=== PATIENT | female | born 1990 | race Caucasian/White ===

== ENCOUNTER 2019-09-17 12:28 | Emergency (ER) | payer OTHER, SELFPAY ==
[2019-09-17 12:33] VITALS: BP 120/71; PULSE 98; RESP 16; TEMP 36.8; O2SAT 98; BMI 29.1
--- NOTE | 2019-09-17 12:41 | ED_ITS ---
Entered by Elisabeth Ghosh, acting as scribe for Sherwin Villa HPI - Extremity Problem General: Chief complaint: Extremity Injury, Lower Stated complaint: Fell down stairs Time Seen by Provider: 09/17/19 12:41 Source: patient Mode of arrival: ambulatory Limitations: no limitations History of Present Illness: HPI Narrative: 29 yo Female presents to ED with complaint of right lower extremity pain. Pt states that she was carrying a lot of stuff and was walking down steps and her ankle twisted in. Pt states that the pain is in her heel and radiates around and up the back of the leg. MD Complaint: extremity pain Onset (ago): hour(s) (1100 today) Pain Consistency: constant Location: right and lower extremity (ankle) Severity scale (1-10): 6 Quality: constant Relieving factors: nothing and immobilization Exacerbating factors: range of motion, weight bearing and walking Associated symptoms: Reports no associated symptoms; Deny chest pain, fever(s) or rash Review of Systems General: Reports: 10 or more systems reviewed and unremarkable except in HPI and below Const: Denies: fever, chills or body aches Eyes: Denies: change in vision, blurry vision or blind spots ENMT: Denies: throat pain, painful swallowing or hoarseness Card: Denies: chest pain, palpitations, irregular heart rhythm, edema or swelling of feet/ankles Resp: Denies: shortness of breath, productive cough, non-productive cough or wheezing GI: Denies: abdominal pain, nausea or vomiting : Denies: flank pain, difficulty urinating, painful urination or urinary frequency Musc: Reports: extremity pain (Right ankle), extremity swelling (Right ankle) and limited range of motion; Denies: neck pain or back pain Skin/Breast: Denies: rash, itching or redness Neuro: Denies: headache, numbness in extremities, weakness in extremities or changes in sensation Endo: Denies: excessive urination, excessive thirst or tired all the time All/Imm: Denies: hives, throat swelling or tongue swelling PFSH ED PFSH: Statuses (acute, chronic, etc) shown below reflect problem list status as previously entered and may not be historically accurate Medical History (Updated 09/17/19 @ 13:56 by Sherwin Villa) History of dysfunctional uterine bleeding (Acute) MRSA infection (Acute) Peptic ulcer disease (Acute) UTI (urinary tract infection) (Acute) Surgical History (Updated 09/17/19 @ 12:46 by Elisabeth Ghosh) History of cholecystectomy (Acute) Social History Smoking and tobacco status: never smoked Physical Exam Const: COMMON NORMALS: no apparent distress, average body habitus, oriented x3, no limitations, healthy appearing, alert and well nourished HENMT: COMMON NORMALS: normocephalic, head/scalp atraumatic, hearing grossly normal bilaterally, external ears normal, EAC's normal, TM's normal bilaterally, external nose normal, nasal mucous membranes and turbinates normal, moist oral mucous membranes, oropharynx normal, dentition normal and gingiva normal HEAD & SCALP: normocephalic and atraumatic NOSE: external nose normal and nasal mucous membranes and turbinates normal EXTERNAL EAR: Yes external ears normal EXTERNAL AUDITORY CANAL: EAC's normal TYMPANIC MEMBRANE: TM's normal bilaterally Eye: COMMON NORMALS: PERRL, EOMs intact bilaterally, conjunctivae normal, no scleral icterus, no papilledema, normal visual tom by confrontation and fundi normal bilaterally CONJUNCTIVA: Yes conjunctivae normal PUPIL: Yes PERRL DIRECT OPHTHALMOSCOPY: Yes no papilledema and Yes fundi normal bilaterally Neck/C-Spine: COMMON NORMALS: full ROM, no lymphadenopathy, supple, no meningeal signs, no JVD, thyroid normal and no carotid bruits THYROID: thyroid normal Chest: COMMONS NORMALS: inspection of chest normal and palpation of chest normal Resp: COMMON NORMALS: normal respiratory effort, no retractions, no use of accessory muscles, clear to auscultation bilaterally and percussion normal AUSCULTATION: clear to auscultation bilaterally PERCUSSION: percussion normal Cardio: COMMON NORMALS: no JVD, regular rate, regular rhythm, S1 normal heart sound, S2 normal heart sound, no gallops, no clicks, no murmurs, no rub and peripheral pulses 2+ throughout RATE: regular rate RHYTHM: regular rhythm HEART SOUNDS: S1 normal and S2 normal PERIPHERAL PULSES: pulses 2+ throughout GI: COMMON NORMALS: normal to inspection, nondistended, normoactive bowel sounds, soft to palpation, non-tender, no hepatosplenomegaly, no masses and no bruits PALPATION: Yes soft and Yes no hepatosplenomegaly : COMMON NORMALS: Yes no CVA tenderness BLADDER/KIDNEY EXAM: Yes no CVA tenderness Back/Pelvis: COMMON NORMALS: no CVA tenderness Extremity: COMMON NORMALS: normal capillary refill, no joint enlargement, no clubbing, cyanosis or edema, no calf tenderness and no pedal edema; negative for normal to inspection and negative for full ROM GENERAL: Yes normal exam except as noted, Yes calf tenderness and Yes weight-bearing difficulty Neuro: COMMON NORMALS: oriented x3 SENSORIUM/ORIENTATION: Yes alert MENINGEAL SIGNS: Yes no meningeal signs Skin: COMMON NORMALS: no rashes or lesions noted, no wounds, skin turgor normal, no jaundice, no petechiae and no mottling GENERAL SKIN EXAM: no rashes or lesions noted and turgor normal Course Vital Signs: Vital signs: Vital Signs Temperature 98.3 F 09/17/19 12:33 Pulse Rate 82 09/17/19 14:28 Respiratory Rate 18 09/17/19 14:28 Blood Pressure 113/73 09/17/19 14:28 Pulse Oximetry 98 09/17/19 14:28 MDM - Extremity (Nontraumatic) Imaging Data^: XR Right Ankle: Radiologist's impression: [place] [address] XRay Report Signed Patient: Lee Hudson #: [id number] : 1990Acct#:[id number] Age/Sex: 29 / FADM Date: 09/17/19 Loc: [facility]/Bed: Attending Dr: Ordering Provider/Ordering MD: Sherwin Villa DO Date of Service: 09/17/19 Procedure(s): XR ankle RT min 3V* [id number] Accession Number(s): [id number] Report Number: [id number] WS: [id number] Right ankle, 3 views, 09/17/2019 Clinical Data: pain, swelling Comparison: None. Findings: No fractures or dislocations are seen. The ankle mortise is normal. The talus and calcaneus are unremarkable. No soft tissue swelling over the medial or lateral malleolus is seen. XR/XR ankle RT min 3V* [id number] Impression: Negative right ankle. Dictated By:Violetta Gr MD Signed By:Violetta Gr MDSigned Date/Time:09/17/198 DD/ 37 Discharge Plan Discharge Patient Disposition: Home, Self-Care Clinical Impression: Ankle sprain and strain Condition: Stable Prescriptions: [place] 5-325 mg tablet 1 tab PO Q6H PRN (Reason: pain) Qty: 10 RF: 0 Discharge Orders: Discharge Order (Routine); Ordered 09/17/19 Ordered By: Sherwin Villa Referrals: Nay Mari MD [Primary Care Provider] - Discharge Diet: Usual diet Discharge Activity: Limit activity as instructed Patient Instructions: Ankle Sprain (ED), Ankle Stirrup Splint (ED), RICE Therapy (ED) Activity Restrictions/Additional Instructions: Please take [id number] Motrin, ibuprofen, naproxen or Aleve, take with food Discharge Date/Time: 09/17/19 14:29 Coding Level of Care Code ED Long Wall Shear Operator for Chg Fwd Exam Problem Focused The documentation recorded by the Augie walker Carmen, accurately reflects the service I personally performed and the decisions made by Daisy talbert Daud Sep 17, 2019 12:28
--- NOTE | 2019-09-17 12:58 | XR_ITS ---
WS: [id number] Right ankle, 3 views, 09/17/2019 Clinical Data: pain, swelling Comparison: None. Findings: No fractures or dislocations are seen. The ankle mortise is normal. The talus and calcaneus are unrem arkable. No soft tissue swelling over the medial or lateral malleolus is seen. XR/XR ankle RT min 3V* [id number] Impression: Negative right ankle.
[2019-09-17] MEDS: HYDROcodone-acetaminophen 5-325 mg Tablet 1 TAB PO (14:15)
[2019-09-17 14:28] VITALS: BP 113/73; PULSE 82; RESP 18; O2SAT 98
== END 2019-09-17 14:29 | disposition home or self-care (01) ==
LOC: ER 14:08
PROVIDERS: Emergency Provider Emergency Medicine; Family Provider Family Medicine; PCP Family Medicine
DX: S93.401A Sprain of unspecified ligament of right ankle, initial encounter (principal); S96.911A Strain of unspecified muscle and tendon at ankle and foot level, right foot, initial encounter; X50.1XXA Overexertion from prolonged static or awkward postures, initial encounter
CPT/HCPCS: 73610; 99281; 99283; E0114

== ENCOUNTER 2019-10-29 10:10 | Outpatient (CLI) | payer OTHER, SELFPAY ==
--- NOTE | 2019-10-29 10:14 | XR_ITS ---
WS: [id number] Right ankle, 3 views, 10/29/2019 Clinical Data: sprain Comparison: Right ankle, 09/17/2019. Findings: No fractures or dislocations are seen. The ankle mortise is normal. The talus and calcaneus are unrem arkable. No soft tissue swelling over the medial or lateral malleolus is seen. XR/XR ankle RT min 3V* [id number] Impression: Negative right ankle.
== END 2019-10-29 10:11 | disposition home or self-care (01) ==
PROVIDERS: Family Provider Family Medicine; PCP Family Medicine; Visit Provider Family Medicine
DX: S93.401A Sprain of unspecified ligament of right ankle, initial encounter (principal); X58.XXXA Exposure to other specified factors, initial encounter
CPT/HCPCS: 73610